=== PATIENT | male | born 1990 | race Caucasian/White ===

== ENCOUNTER 2017-07-12 23:44 | Inpatient (IN) | END 2017-07-30 19:10 | DRG 871 ==

== ENCOUNTER 2017-08-02 20:59 | Inpatient (IN) | END 2017-08-04 13:45 | DRG 682 ==

== ENCOUNTER 2017-08-07 23:54 | Inpatient (IN) | END 2017-09-08 20:30 | disposition home or self-care (01) | DRG 871 ==

== ENCOUNTER 2017-09-11 12:29 | Inpatient (IN) | END 2017-09-18 14:45 | DRG 683 ==